=== PATIENT | male | born 1950 | race African-American/Black ===

== ENCOUNTER 2024-03-23 13:48 | Emergency (ER) | payer OTHER ==
[~2024-03-23] VITALS: Ht 182.9 cm; Wt 64.0 kg
[2024-03-23 13:56] VITALS: O2SAT 98
[2024-03-23 19:13] VITALS: BP 116/76; PULSE 55; RESP 16; TEMP 36.33624; O2SAT 98
== END 2024-03-23 19:15 | disposition home or self-care (01) ==
LOC: ER 14:40
DX: R51.9 Headache, unspecified (principal); I11.0 Hypertensive heart disease with heart failure; I50.9 Heart failure, unspecified; J44.1 Chronic obstructive pulmonary disease with (acute) exacerbation; W06.XXXA Fall from bed, initial encounter; Y93.89 Activity, other specified; Y92.89 Other specified places as the place of occurrence of the external cause; Y99.8 Other external cause status
CPT/HCPCS: 99284